=== PATIENT | female | born 2000 | race Caucasian/White ===

== ENCOUNTER 2019-09-15 15:21 | Emergency (ER) | payer BC ==
[~2019-09-15] VITALS: Ht 170.2 cm; Wt 93.5 kg
[2019-09-15] MEDS ORDERED: TESSALON P100 MG/CAP PO (15:59)
[2019-09-15] MEDS ORDERED: IBU800 M1 PO (16:00)
[2019-09-15 16:57] LABS: BASO % 0.6 % (0.0-2.0); EOS # 0.2 (0.0-0.7); EOS % 2.5 % (0-4.0); GRAN # 5.3 (1.4-6.5); GRAN % 74.4 % (42.2-75.2); HEMATOCRIT 39.2 % (37.0-47.0); HEMOGLOBIN 13.7 g/dl (12.5-16.0); LYMPH # 1.2 (1.2-3.4); LYMPH % 16.7 % (20.0-51.0); MEAN CELL VOLUME 87 fl (80.0-100.0); MEAN CORPUSCULAR HEMOGLOBIN 30 pg (27.0-31.0); MEAN CORPUSCULAR HGB CONC 35 g/dl (33.0-37.0); MEAN PLATELET VOLUME 9.1 fl (7.4-10.4); MONO # 0.4 (0.1-0.6); MONO % 5.5 % (1.7-9.3); PLATELET COUNT 268 K/mm3 (130-400); RED BLOOD COUNT 4.51 M/mm3 (4.10-5.30); REDCELL DISTRIBUTION WIDTH-CV 11.7 % (11.5-14.5)
[2019-09-15 17:00] LABS: ALBUMIN 4.3 gm/dL (3.5-5.0); BILIRUBIN,TOTAL 0.7 mg/dL (0.0-1.0); CALCIUM 9.4 mg/dL (8.4-10.2); CREATININE, serum 0.65 (0.52-1.25); POTASSIUM 3.4 mmol/L (3.4-5.0); TOTAL PROTEIN 7.6 gm/dL (6.4-8.2)
[2019-09-15] MEDS ORDERED: DOXYCYCLINE HY100 MG PO (18:00)
[2019-09-15] MEDS ORDERED: PHENERGAN W/CO120 M1 PO (18:00)
[2019-09-15 18:58] VITALS: BP 125/75; PULSE 83; TEMP 99
== END 2019-09-15 19:00 | disposition home or self-care (01) ==
LOC: COL.ER 15:21
PROVIDERS: Emergency Medicine
DX: J18.1 Lobar pneumonia, unspecified organism (principal)
CPT/HCPCS: J7030